=== PATIENT | male | born 1990 | race Caucasian/White ===

== ENCOUNTER 2023-03-03 12:46 | Inpatient (IN) | payer BC ==
[2023-03-03 13:41] VITALS: BMI 26.9
[2023-03-03] MEDS ORDERED: POLYETHYLENE GLYCOL (HEALTHYLAX) 3350 17 GM PACKET PO PRN (14:22)
[2023-03-03] MEDS ORDERED: METHOCARBAMOL 500 MG TABLET PO PRN (14:22)
[2023-03-03] MEDS ORDERED: LORazepam 1 MG TABLET PO PRN (14:22)
[2023-03-03] MEDS ORDERED: MAG HYDROX/AL HYDROX/SIMETH 30 ML UNIT-DOSE CUP PO PRN (14:22)
[2023-03-03] MEDS ORDERED: guaiFENesin 600 MG TABLET.ER (FP) PO PRN (14:22)
[2023-03-03] MEDS ORDERED: IBUPROFEN 600 MG TABLET (FP) PO PRN (14:22)
[2023-03-03] MEDS ORDERED: BISMUTH SUBSALICYLATE 524 MG/30 ML PO PRN (14:22)
[2023-03-03] MEDS ORDERED: BENZOCAINE/MENTHOL (CHLORASEPTIC ) LOZENGE MM PRN (14:22)
[2023-03-03] MEDS ORDERED: ONDANSETRON *ODT* 4 MG TABLET SL PRN (14:22)
[2023-03-03] MEDS ORDERED: IBUPROFEN 400 MG TABLET (FP) PO PRN (14:22)
[2023-03-03] MEDS ORDERED: NALOXONE HCL (KLOXXADO) 8 MG SPRAY NS PRN (14:22)
[2023-03-03] MEDS ORDERED: BENZONATATE 200 MG CAPSULE PO PRN (14:22)
[2023-03-03] MEDS ORDERED: LOPERAMIDE HCL 2 MG CAPSULE PO PRN (14:22)
[2023-03-03] MEDS ORDERED: NALOXONE HCL 0.4 MG/ML VIAL IM PRN (14:22)
[2023-03-03] MEDS ORDERED: ACETAMINOPHEN 325 MG TABLET (FP) PO PRN (14:22)
[2023-03-03] MEDS ORDERED: MAGNESIUM HYDROX 2400MG/30ML ORAL SUSPENSION 30 ML CUP PO PRN (14:22)
[2023-03-03] MEDS ORDERED: DICYCLOMINE HCL 10 MG CAPSULE PO PRN (14:22)
[2023-03-03] MEDS: hydrOXYzine PAMOATE 25 MG CAPSULE (FP) PO PRN (15:19)
[2023-03-03] MEDS: LORazepam 2 MG TABLET PO SCH ×2 (17:15→22:10)
[2023-03-03] MEDS ORDERED: MELATONIN 5 MG TABLETS PO SCH (22:00)
[2023-03-03] MEDS: THIAMINE HCL 100 MG TABLET (FP) PO SCH (22:10)
[2023-03-04] MEDS: LORazepam 2 MG TABLET PO SCH ×4 (05:44→22:09)
[2023-03-04] MEDS: PRENATAL VITAMINS W/ FOLIC ACID TABLET (FP) PO SCH (10:10)
[2023-03-04] MEDS: DIVALPROEX SODIUM 500 MG TABLET E.C. PO SCH (22:09)
[2023-03-04] MEDS: THIAMINE HCL 100 MG TABLET (FP) PO SCH (22:09)
[2023-03-04] MEDS: SUVOREXANT 10 MG TABLET PO PRN (22:14)
[2023-03-05] MEDS: LORazepam 1 MG TABLET PO SCH ×4 (05:18→22:04)
[2023-03-05] MEDS: PRENATAL VITAMINS W/ FOLIC ACID TABLET (FP) PO SCH (10:20)
[2023-03-05] MEDS: hydrOXYzine PAMOATE 25 MG CAPSULE (FP) PO PRN (10:20)
[2023-03-05 12:21] LABS: HEMATOCRIT 41.8 % (35.4-49); HEMOGLOBIN 14.6 GM/dL (11.7-16.9); MCH 30.5 pg (25.7-33.7); MEAN CELL VOLUME 87.2 fl (80-96); MEAN PLT VOLUME 9.6 fl (7.5-11.1); PLATELET COUNT 153 10^3/uL (134-434); RBC 4.79 M/mm3 (4.00-5.60); RDW 13.2 % (11.9-15.9); WHITE BLOOD COUNT 4.8 K/mm3 (4.0-10.0)
[2023-03-05 12:29] LABS: BLOOD UREA NITROGEN 17.5 mg/dL (7-18); CALCIUM 8.7 mg/dL (8.5-10.1)
[2023-03-05 12:30] LABS: ALBUMIN 3.8 g/dl (3.4-5.0)
[2023-03-05 12:33] LABS: CREATININE 0.9 mg/dL (0.55-1.3)
[2023-03-05 12:34] LABS: BILIRUBIN,TOTAL 1.1 mg/dL (0.2-1)
[2023-03-05 12:36] LABS: TOT PROT 6.7 g/dl (6.4-8.2)
[2023-03-05] MEDS: THIAMINE HCL 100 MG TABLET (FP) PO SCH (22:04)
[2023-03-05] MEDS: DIVALPROEX SODIUM 500 MG TABLET E.C. PO SCH (22:04)
[2023-03-05] MEDS: SUVOREXANT 10 MG TABLET PO PRN (22:06)
[2023-03-06] MEDS ORDERED: LORazepam 0.5 MG TABLET PO PRN
[2023-03-06] MEDS: LORazepam 0.5 MG TABLET PO SCH ×4 (05:15→22:52)
[2023-03-06] MEDS: PRENATAL VITAMINS W/ FOLIC ACID TABLET (FP) PO SCH (10:08)
[2023-03-06 13:08] VITALS: RESP 18
[2023-03-06] MEDS: SUVOREXANT 10 MG TABLET PO PRN (22:52)
[2023-03-06] MEDS: THIAMINE HCL 100 MG TABLET (FP) PO SCH (22:53)
[2023-03-06] MEDS: DIVALPROEX SODIUM 500 MG TABLET E.C. PO SCH (22:53)
[2023-03-07] MEDS ORDERED: LORazepam 0.5 MG TABLET PO ONE (05:00)
[2023-03-07 05:59] VITALS: TEMP 97.3
[2023-03-07 08:51] VITALS: BP 130/86; PULSE 77
[2023-03-07] MEDS: PRENATAL VITAMINS W/ FOLIC ACID TABLET (FP) PO SCH (10:53)
[2023-03-07 11:14] LABS: PH,URINE 6.5 (5.0-8.0); URINE APPEARANCE CLEAR; URINE BILIRUBIN NEGATIVE (NEGATIVE); URINE COLOR YELLOW; URINE GLUCOSE (UA) NEGATIVE (NEGATIVE); URINE KETONE NEGATIVE (NEGATIVE); URINE LEUK ESTERASE NEGATIVE (NEGATIVE); URINE NITRITE NEGATIVE (NEGATIVE); URINE PROTEIN NEGATIVE (NEGATIVE); URINE UROBILINOGEN 0.2 mg/dL (0.2-1.0)
== END 2023-03-07 09:44 | disposition home or self-care (01) | DRG 775 ==
LOC: YASAS 12:46 → Y6N 14:44
PROVIDERS: ADMIT Allergy & Immunology; ATTEND Surgery
PROC: HZ2ZZZZ Detoxification Services for Substance Abuse Treatment (ICD-10-PCS; principal; 2023-03-03)
DX: F10.230 Alcohol dependence with withdrawal, uncomplicated (principal); F13.20 Sedative, hypnotic or anxiolytic dependence, uncomplicated; F31.9 Bipolar disorder, unspecified; F10.282 Alcohol dependence with alcohol-induced sleep disorder; F10.280 Alcohol dependence with alcohol-induced anxiety disorder; F10.24 Alcohol dependence with alcohol-induced mood disorder
CPT/HCPCS: 36415; 80053; 81003; 85027; 86780; 87811; C9803-CS; U0003; U0005